=== PATIENT | female | born 1980 | race African-American/Black ===

== ENCOUNTER → 2024-06-24 09:08 | Outpatient (REF) | payer OTHER, SELFPAY | LOC: WDC 09:08 | PROVIDERS: ATTENDING PHYSICIAN Nurse Practitioner Family | DX: N63.20 Unspecified lump in the left breast, unspecified quadrant (principal); N64.4 Mastodynia | CPT/HCPCS: 76642; 77062; 77066 ==

== ENCOUNTER → 2024-07-12 09:56 | Outpatient (REF) | payer OTHER, SELFPAY | LOC: RAD 09:56 | PROVIDERS: ATTENDING PHYSICIAN Nurse Practitioner Family | DX: N93.9 Abnormal uterine and vaginal bleeding, unspecified (principal) | CPT/HCPCS: 76830; 76856 ==

== ENCOUNTER 2024-11-25 06:18 | Day surgery (SDC) | payer OTHER, SELFPAY ==
[2024-11-16 08:51] LABS: % Basophils 0.2 % (0-2); % Immature Granulocytes 0.3 % (0-0.5); % Lymphocytes 20.2 % (20.5-51.1); % Monocytes 6.2 % (1.7-9.3); % Neutrophils 72.1 % (42.2-75.2); Absolute Eosinophils 0.1 10^3/uL (0-0.7); Absolute Lymphocytes 1.8 10^3/uL (1.2-3.4); Absolute Monocytes 0.6 10^3/uL (0.1-0.6); Absolute Neutrophils 6.4 10^3/uL (1.4-6.5); Hematocrit 34.1 % (37.0-47.0); Hemoglobin 10.9 g/dL (12.0-16.0); Mean Corpuscular Hgb 24.2 pg (27.0-31.0); Mean Corpuscular Volume 75.6 fL (81.0-99.0); Mean Platelet Volume 9.8 fL (7.4-10.4); Nucleated Red Blood Cells % 0 %; Platelet Count 286 10^3/uL (130-400); Red Blood Cell Count 4.51 10^6/uL (4.20-5.40); Red Cell Dist. Width 13.7 % (11.5-14.5); White Blood Cell Count 8.8 10^3/uL (4.8-10.8)
[2024-11-16 09:23] LABS: Blood Urea Nitrogen 12 mg/dl (7-17); Calcium 9.2 mg/dl (8.4-10.2); Carbon Dioxide 24 mmol/L (22-30); Chloride 104 mmol/L (98-107); Glucose 95 mg/dl (70-99); Potassium 4.3 mmol/L (3.5-5.1); Sodium 139 mmol/L (135-145); eGFR > 60.00
[2024-11-16 09:41] LABS: Beta HCG Quantitative < 2.39 mIU/ml
[2024-11-16 13:35] VITALS: BMI 28.2
[2024-11-25] VITALS (9 sets, daily range): BP systolic 105–125; BP diastolic 77–85; BMI 28.2
--- NOTE | 2024-11-26 11:22 | W.IMMPOSTOP ---
Surgical Immed Post Op Note
-
Late entry Note. There is a written note on chart from day of surgery for postop note.
Primary Surgeon: Drea Arita DO
Assisting Surgeon: n/a
Pre-op Diagnosis: Abnormal uterine bleeding; endometrial mass, suspected polyp
Post-op Diagnosis: same; endometrial polyp
Procedure Performed: Hysteroscopy D&C, endometrial polypectomy
Anesthesia Type: general LMA Dr. Spencer
Specimen / Cultures: 1. endocervical curettings 2. endometrial curettings with endometrial polyp
Estimated Blood Loss: less than 2 ml
Complications: none
Operative Findings: Uterus with small endometrial polyp. Bilateral tubal ostia seen.
Counts correct times 2.
Stable to recovery.
== END 2024-11-25 11:46 | disposition home or self-care (01) ==
LOC: SDS 06:18
PROVIDERS: ATTENDING PHYSICIAN Obstetrics & Gynecology
DX: N84.0 Polyp of corpus uteri (principal); N93.9 Abnormal uterine and vaginal bleeding, unspecified
CPT/HCPCS: 58558; 88305; 36415; 80048; 84702; 85025; 86850; 86900; 86901

== ENCOUNTER 2025-02-28 02:34 | Inpatient (IN) | payer OTHER, SELFPAY ==
[2025-02-27 16:09] VITALS: BP 130/88
[2025-02-27 16:46] LABS: % Basophils 0.3 % (0-2); % Eosinophils 0.2 % (0-6); % Immature Granulocytes 0.5 % (0-0.5); % Lymphocytes 8.7 % (20.5-51.1); % Monocytes 5.3 % (1.7-9.3); Absolute Basophils 0.1 10^3/uL (0-0.2); Absolute Immature Granulocytes 0.1 10^3/uL (0-0.05); Absolute Lymphocytes 1.5 10^3/uL (1.2-3.4); Absolute Monocytes 0.9 10^3/uL (0.1-0.6); Absolute Neutrophils 14.7 10^3/uL (1.4-6.5); Hematocrit 36.4 % (37.0-47.0); Mean Corpuscular Hgb 24.5 pg (27.0-31.0); Mean Corpuscular Volume 74.3 fL (81.0-99.0); Mean Platelet Volume 10.7 fL (7.4-10.4); Nucleated Red Blood Cells % 0 %; Platelet Count 285 10^3/uL (130-400); Red Cell Dist. Width 13.7 % (11.5-14.5); White Blood Cell Count 17.3 10^3/uL (4.8-10.8)
[2025-02-27 16:46] LABS: Urine Albumin Negative (Neg - Trace); Urine Bilirubin Negative (Negative); Urine Character Clear (Clear); Urine Color Yellow; Urine Glucose Negative (Negative); Urine Ketone Negative (Negative); Urine Leukocyte 1+ (Negative); Urine Nitrite Negative (Negative); Urine Occult Blood 2+ (Negative); Urine Urobilinogen Negative (Neg - 1+)
[2025-02-27 16:56] LABS: HCG, Serum Qualitative Screen Negative
[2025-02-27 16:57] LABS: ALT (SGPT) 19 U/L (0-35); AST (SGOT) 21 U/L (14-36); Albumin 4.6 g/dl (3.5-5.0); Alkaline Phosphatase 53 U/L (38-126); Blood Urea Nitrogen 13 mg/dl (7-17); Carbon Dioxide 22 mmol/L (22-30); Chloride 107 mmol/L (98-107); Glucose 99 mg/dl (70-99); Lipase 48 U/L (23-300); Potassium 4.3 mmol/L (3.5-5.1); Sodium 138 mmol/L (135-145); Total Bilirubin 0.8 mg/dl (0.2-1.3); Total Protein 8.2 g/dl (6.3-8.2); eGFR > 60.00
[2025-02-27 17:08] LABS: Urine Bacteria Moderate (Negative)
--- NOTE | 2025-02-27 22:29 | ED.GENMED ---
History of Present Illness
General
Chief Complaint: Abdominal Pain
Source: patient
Exam Limitations: none
Time Seen by Provider: 02/27/25 22:17
Nursing documentation reviewed up to this point in time: agreed with
History of Present Illness
History of Present Illness:
44-year-old female presents emergency department due to right lower quadrant abdominal pain that began around 11:30 AM. She was seen in urgent care, and sent to the emergency department. She had breakfast, but has not eaten anything since. No
fevers.
Past History
Past History
ED Past Medical History: Other (Back pain, herniated disc, palpitations, anemia, beta thalassemia)
ED Past Surgical History: and Gynecological (Uterine polyp removal 11/25/[address] Arita)
Social History
Tobacco: Non-smoker
Alcohol: None
Drug: None
Personal:
Living: with family
Employment: Employed
Review of Systems
Review of Systems
Allergies reviewed?: Yes
All Other Systems: Not applicable
Constitutional: Reports no symptoms
EENT: Reports no symptoms
Respiratory: Reports no symptoms
Cardiac: Reports no symptoms
ABD/GI: Reports abdominal pain; Denies vomiting or diarrhea
: Reports no symptoms
Musculoskeletal: Reports no symptoms
Skin: Reports no symptoms
Neurological: Reports no symptoms
Endocrine: Reports no symptoms
Hematologic/Lymphatic: Reports no symptoms
Psychiatric: Reports no symptoms
Phy Exam
Physical Exam
Physical Exam:
Physical Exam
General: Afebrile
Neck: supple. no meningeal signs. normal posterior pharynx
Heart: s1/s2 regular rate and rhythm, no murmur. equal radial
pulses.
HEENT: Pupils equal round reactive to light, EOMI
Lungs: no acute respiratory distress. clear bilaterally
Abdomen: normal bowel sounds. Right lower quadrant tenderness. no CVAT
Neuro: alert and oriented. no focal neurological deficits cranial nerves II through XII intact
Skin: no rash
Psychiatric: well kept. interactive and cooperative
Extremities: no edema. no calf tenderness. negative homans. good distal pulses
Course
Orders/Labs/Results
Orders:
Orders
02/27/25 16:13
Test Result ONCE
02/27/25 16:21
Urinalysis Reflex To Culture Urgent
Date Specimen was Collected: 02/27/25
Time Specimen was Collected: 16:14
Urine Microscopic Reflex Cult Urgent
Urine Culture Urgent
DANIELA Source: U
Specimen Description:
Date Specimen was Collected: 02/27/25
Time Specimen was Collected: 16:14
02/27/25 16:25
Complete Blood Count/With Diff Urgent
02/27/25 16:27
Comprehensive Metabolic Panel Urgent
HCG, Serum Qualitative Screen Urgent
Lipase Urgent
02/27/25 22:28
IV Insert/Care/Rem.- Treatment PRN
Vital Signs- Treatment ONCE
Frequency: Hourly
Comment: weight and bmi
Acetaminophen [Tylenol] 650 mg PO NOW STA
02/28/25 00:02
CT Abd/pelvis W Iv Cont Urgent
Reason For Exam: RLQ abd pain
02/28/25 00:43
Piperacillin/Tazo 4.5 Gram [Zosyn] 4.5 gram in 100 ml IV NOW
02/28/25 01:39
Lactated Ringers [Lr] 1,000 ml IV BOLUS
02/28/25 02:11
Admit/Transfer Patient As Directed
Co-Sign Provider:
Level of Care: Inpatient admission
Assign to:: Medical/Surgical
Physician / Group: Haseeb motta
Diagnosis: Acyute appendicitis
Reason for Hospitalization: Possible OR, IV antibiotics
Expected length of stay greater than two midnights?: Yes
ELOS- Estimated Length of Stay in days: 1
I certify the patient meets the requirements for IP care: Yes
PRN Pain Medication Management As Directed
May give lesser potent ordered pain med per pt: Yes
preference::
Protocol:: Medication orders for pain may be administered in a
manner that supports deferring to patient preference
when the pt is:
- Requesting an ordered lesser potent pain medication.
Least to most potent pain medications are defined
as: acetaminophen < NSAID < tramadol < opioids
(morphine, oxycodone, hydromorphone).
- Requesting a lesser dose of the same medication IF
ORDERED.
- Requesting a less intrusive route of administration
if both routes are prescribed by the provider (PO <
IV).
02/28/25 02:12
Code Status As Directed
Resuscitation Status: Full Code
02/28/25 03:00
Flush (0.9% Sodium Chloride) [Flush (Nss)] See Dose Instructions IV PER PROTOCOL
Lactated Ringers [Lr] 1,000 ml IV 150 mls/hr
Abnormal Lab Results
02/27/25 02/27/25
16:21 16:25
WBC 17.3 H 10^3/uL
(4.8-10.8)
Hct 36.4 L %
(37.0-47.0)
MCV 74.3 L fL
(81.0-99.0)
MCH 24.5 L pg
(27.0-31.0)
MPV 10.7 H fL
(7.4-10.4)
Abs Immat Gran (auto) 0.1 H 10^3/uL
(0-0.05)
Absolute Neuts (auto) 14.7 H 10^3/uL
(1.4-6.5)
Absolute Monos (auto) 0.9 H 10^3/uL
(0.1-0.6)
Neutrophils % 85.0 H %
(42.2-75.2)
Lymphocytes % 8.7 L %
(20.5-51.1)
Ur Occult Blood Reflex 2+ A
(Negative)
Leukocyte Esterase Rfl 1+ A
(Negative)
Urine RBC 3-6 A /HPF
(0-2)
Urine Bacteria (Reflex) Moderate A
(Negative)
02/27/25 16:25
02/27/25 16:27
Vital Signs
Initial and Last Documented VS:
Initial Vital Signs
Temp Pulse Resp BP Pulse Ox
98.5 F 75 16 130/88 100
02/27/25 16:09 02/27/25 16:09 02/27/25 16:09 02/27/25 16:09 02/27/25 16:09
Last Documented Vital Signs
Temp Pulse Resp BP Pulse Ox
98.5 F 76 12 112/75 97
02/27/25 16:09 02/28/25 01:46 02/28/25 01:46 02/28/25 01:23 02/28/25 01:46
MDM/Problems Addressed
Differential Diagnosis Includes:
ovarian cyst, appendicitis
MDM/Problems Addressed:
44-year-old female with appendicitis, no perforation or rupture. Admit to general surgery, Dr. Motta. Arianna given.
*Radiology
Radiology exam reviewed: radiology read reviewed (CT abdomen pelvis shows acute appendicitis)
*Pulse Oximetry
Patient hypoxic: no
*Food Service Agent Interpretation
Rate: Food Service Agent- N/A
*Critical Care Note
Total Time (30-74mins, 75-104mins- exclusive of procedures): Not Applicable
Patient Management
Social determinants of health affecting care: Living situation and Strong social support
Discussion with other providers: Certifier (General surgery)
Escalation/DeEscalation of care consider admission/obs:
Admit indicated
ED Attending Note
-
Portions of this chart may have been created with voice recognition software.� Occasional wrong word or��sound alike� substitutions may have occurred due to the inherent limitations of voice recognition software.
Discharge Plan
Departure
Patient Disposition: Admit
Date of Disposition: 02/28/25
Time of Disposition: 00:45
Admit to: Med/Surg
Presentation/result/management discussed w/ accepting MD/DO: Gen surgery Dr. Motta
Patient with high blood pressure during this ER visit?: No
Condition: Good
Discharge Problem:
Acute appendicitis
Interventions
Interventions:
*Risk Screen - Suicide Last Done: 02/27/25 16:09
*General Assessment Last Done: 02/27/25 16:09
*Neglect/Abuse Screening Last Done: 02/27/25 16:09
*ED- Fall Risk Assessment Last Done: 02/27/25 23:23
*ED COVID-19 Vaccine History Last Done: 02/27/25 23:23
VZ-Shymfs-Tbefdlzqfk Assessment Last Done: 02/27/25 23:23
[2025-02-27] MEDS: TYLENOL 650 MG PO (23:13)
[2025-02-27 23:19] VITALS: BP 117/81
[2025-02-27 23:22] VITALS: BMI 28.9
[2025-02-28] VITALS: BP 117/72
[2025-02-28] MEDS: ZOSYN 100 IV (01:18)
[2025-02-28 01:23] VITALS: BP 112/75
[2025-02-28] MEDS: LR 1000 IV ×4 (01:54→20:33)
--- NOTE | 2025-02-28 02:20 | HPS.HSE ---
Family Physician
-
Family Physician: * NONE
Chief Complaint
-
'abdomen pain'
History of Present Illness
44 year old patient presents to ER with the complaint of diffuse abdomen pain started at 11:30 AM on Thursday. She describes pain as 'sharp' and that pain got sharper throughout the day. Reports nausea, but no vomiting or diarrhea. Denies fever,
chills, chest pain or shortness of breath. Last BM 02/27
Medical History
Past Medical History
Past Medical History: Reports None
Additional Past Medical History:
Anemia, Beta Thalassemia, palpitations
Past Surgical History: Reports (x2)
Social History
Tobacco: Non-smoker
Alcohol: None
Drug: None
Personal:
Living: With Family
Family History
Family History: Not pertinent
Allergies / Home Medications
Allergies reflects when Allergies were last updated in [email or web address].
Home Medications with original date entered in [email or web address]
Allergy/Medication List:
Allergies
Allergy/AdvReac Type Severity Reaction Status Date / Time
ketorolac [From Toradol] Allergy Itching Verified 02/27/25 16:12
Home Medications
No Meds [No Current Medications] 11/25/24
Review of Systems
-
History Source: Patient
A 12 point ROS was completed and negative except as noted: Yes
Constitutional: Reports No Symptoms
EENT: Reports No Symptoms
Respiratory: Reports No Symptoms
Cardiac: Reports No Symptoms
Abdomen/GI: Reports Abdominal Pain
: Reports No Symptoms
Musculoskeletal: Reports No Symptoms
Skin: Reports No Symptoms
Neurological: Reports No Symptoms
Endocrine: Reports No Symptoms
Hematologic/Lymphatic: Reports No Symptoms
Psych: Reports No Symptoms
Physical Exam
Vital Signs
Vital Signs
Temp Pulse Resp BP Pulse Ox
98.5 F 76 12 112/75 97
02/27/25 16:09 02/28/25 01:46 02/28/25 01:46 02/28/25 01:23 02/28/25 01:46
Physical Exam
General: Well Developed, Well Nourished and No Apparent Distress
HEENT: NormoCephalic, Moist mucous membranes and Atraumatic
Respiratory: Clear and Non Labored Respirations
Cardiac: S1/S2 and Regular Rhythm
GI: Soft, Non Distended, Normal Bowel Sounds and Tender (mid abdomen)
Rectal: Deferred by Provider
Genito-urinary: No costovertebral tender
Musculoskeletal: No Clubbing, No Cyanosis and No Edema
Skin: Warm and Dry
Neuro: Awake, AO x 3 and Nonfocal/grossly intact
Hematologic/Lymphatic: No Lymphadenopathy
Psych: Calm
Laboratory Results
-
02/27/25 16:25
02/27/25 16:27
Laboratory Results
Total Bilirubin 0.8 mg/dl (0.2-1.3) 02/27/25 16:27
AST 21 U/L (14-36) 02/27/25 16:27
ALT 19 U/L (0-35) 02/27/25 16:27
Alkaline Phosphatase 53 U/L (38-126) 02/27/25 16:27
Lipase 48 U/L (23-300) 02/27/25 16:27
Data Reviewed
-
CT Scan: Report Reviewed by me
Lab Data: Labs Reviewed by me
Impression/Plan
-
44 y/o patient with the c/o abdomen pain
# Abdomen pain likely due to Acute Appendicitis
- WBC 17
- CT abd/pelvis
Enlarged appendix measuring up to 10mm, with wall thickening and surrounding stranding, compatible with acute appendicitis
-Continue IV Zosyn
- Continue LR
- IV Dilaudid
- NPO
-Admit to Dr. Motta Med Surg
Full Code
SCD's
[2025-02-28 08:00] VITALS: BP 105/46
[2025-02-28] MEDS: ZOSYN 50 IV ×3 (08:18→20:34)
--- NOTE | 2025-02-28 10:00 | CON.GS ---
Addendum entered and electronically signed by Haseeb Motta MD 02/28/25 12:02:
Patient and opt for medical management. Risks and benefits discussed. Plan to admit on IV Zosyn. Repeat labs ordered for tomorrow. Dispo and decision on surgical management pending WBC trend and symptoms.
Original Note:
Consultation
-
Date/Time Consultation Requested: 02/27/2025 1245
Date/Time Consultation Performed: 02/28/2025 0900
Medical History
-
Chief Complaint: Abdominal pain
History of Present Illness:
Patient is a 44 yo F with a PMH of abnormal uterine bleeding, thickened endometrium, and fibroids s/p hysteroscopy D&C and endometrial polypectomy by Dr. Arita on 11/26/2024 and s/p x2 who presents with abdominal pain over the past 24
hours. Symptoms began yesterday morning somewhat acutely. She describes crampy abdominal discomfort which is worse with movement and certain positions. Pain localizes to the RIGHT lower abdomen as sharp pains. No nausea or emesis. No fevers or
chills. No diarrhea or bloody stools. She initially attributed her symptoms to food poisoning or a gastroenteritis, however, her symptoms persisted prompting presentation to a local urgent care and then ultimately to ER. No family history of
IBD or colon cancer. No prior colonoscopy.
Past Medical History
Past Medical History: Other (Abnormal uterine bleeding, beta thalassemia)
Past Surgical History: and Gynecological (Hysteroscopy with biopsy on 11/26/2024)
Social History
Tobacco: Non-Smoker
Alcohol: None
Drug: None
Personal:
Living: With Family
Family History
Family History: Reviewed & Noncontributory
Allergies / Home Medications
Allergy/AdvReac Type Severity Reaction Status Date / Time
ketorolac [From Toradol] Allergy Itching Verified 02/27/25 16:12
�Medication �Instructions �Recorded �Confirmed �Type
No Meds [No Current Medications] 11/25/24 02/28/25 History
Review of Systems
-
A 10 point review of systems was completed, and was negative except as per HPI.
Physical Exam
Vital Signs
Temp Pulse Resp BP Pulse Ox
98.4 F 76 12 112/75 97
02/28/25 08:00 02/28/25 01:46 02/28/25 01:46 02/28/25 01:23 02/28/25 01:46
02/27/25 02/28/25 03/01/25
06:59 06:59 06:59
Actual Weight 72.7 kg
Body Mass Index (BMI) 28.9
Lab Results
02/27/25 16:25
02/27/25 16:27
WBC 17.3 10^3/uL (4.8-10.8) H 02/27/25 16:25
Hgb 12.0 g/dL (12.0-16.0) 02/27/25 16:25
Hct 36.4 % (37.0-47.0) L 02/27/25 16:25
Plt Count 285 10^3/uL (130-400) 02/27/25 16:25
Abs Immat Gran (auto) 0.1 10^3/uL (0-0.05) H 02/27/25 16:25
Neutrophils % 85.0 % (42.2-75.2) H 02/27/25 16:25
Physical Exam
General: Well Developed, Well Nourished and No Apparent Distress
HEENT: Normocephalic and Anicteric
Respiratory: Non Labored Respirations
Cardiac: Regular Rhythm
GI: Soft, Non Distended, Tender (RLQ) and Other (No diffuse peritonitis, palpable umbilical hernia, soft, reducible, fascial defect 1 cm)
Musculoskeletal: No Edema
Skin: Warm and Dry
Neuro: Nonfocal/Grossly Intact
Data Reviewed
-
CT Scan: Image Personally Visualized and interpreted and Report Reviewed by me
Labs: Labs Reviewed by me
Assessment / Plan
-
Patient is a 44 yo F p/w RUQ abdominal pain and acute appendicitis
Differential includes FIELD INSTALLATION TECHNICIAN pathology given her CT scan findings and prior history, however, her pain is localized to the RLQ in the region of her appendix and her symptoms are different from that previously. She also has a positive UA with a culture
pending, however, this could very well be reactive from her ongoing acute process. The natural history and pathophysiology of appendicitis was reviewed. CT scan imaging as a relates to both her FIELD INSTALLATION TECHNICIAN pathology and appendix was reviewed. Options for
management including medical management with antibiotics versus surgical management with appendectomy were considered and discussed. The pros and cons of this was discussed. Specifically, we discussed failure of medical management and future
episodes of appendicitis versus surgical risks and recovery.
Tentative plan for a laparoscopic appendectomy with open primary umbilical hernia repair. The procedure itself, as well as the risks, benefits, and alternatives was discussed. Specifically, we discussed the risks of bleeding, infection, injury to
surrounding structures (bowel, bladder), staple line leak, need for open procedure. We also discussed that with a coordinated primary umbilical hernia repair she is at risk for recurrence and will need to extend out her activity limitations for 4
weeks postoperatively.
Patient to review her treatment options before making a final decision. All questions answered.
-- Tentative plan for a laparoscopic appendectomy with open primary umbilical hernia repair
-- NPO, IVF
-- Abz: Zosyn
--- NOTE | 2025-02-28 11:39 | CM ---
CM met with pt and spouse bedside
They resides with their children (8 and 13) in a 2[address] with 3STE
Pt is indep with her ADLs
Works FT at [employer] schedule
PCP- none (recently retired and trouble getting timely new pt appt)
Resident clinic info provided
Rx- [facility]
Discharge Disposition- home, no needs anticipated
[2025-02-28] MEDS: MOTRIN 600 MG PO ×2 (13:33→21:51)
[2025-02-28 16:49] VITALS: BP 99/61
[2025-02-28 17:20] VITALS: BP 110/70
--- NOTE | 2025-02-28 17:30 | PTCARENOTE ---
Patient admitted into room 2112 from ED. Patient AAOx3, VSS, LR infusing at 75 ml/hr in R FA IV, patient ambulatory in room with standby assist/IV pole. Patient states R lower abd discomfort rated 3-4/10, denies need for pain medication at this
time. Clear liquid diet order entered. JOANN stockings and SCDs in room, patient refusing at this time. Patient and spouse at bedside updated on plan of care, patient oriented to room and call monica durant appropriately.
[2025-02-28 23:25] VITALS: BP 116/76
[2025-02-28] MEDS: DILAUDID 0.25 MG IV (23:59)
[2025-03-01] MEDS: ZOSYN 50 IV ×2 (02:03→08:46)
[2025-03-01 07:23] LABS: % Basophils 0.3 % (0-2); % Immature Granulocytes 0.4 % (0-0.5); % Lymphocytes 15.1 % (20.5-51.1); % Monocytes 8.1 % (1.7-9.3); % Neutrophils 75.1 % (42.2-75.2); Absolute Eosinophils 0.1 10^3/uL (0-0.7); Absolute Lymphocytes 1.7 10^3/uL (1.2-3.4); Absolute Monocytes 0.9 10^3/uL (0.1-0.6); Absolute Neutrophils 8.5 10^3/uL (1.4-6.5); Hematocrit 30.2 % (37.0-47.0); Mean Corp Hgb Conc. 33.1 g/dL (33.0-37.0); Mean Corpuscular Hgb 24.4 pg (27.0-31.0); Mean Corpuscular Volume 73.8 fL (81.0-99.0); Mean Platelet Volume 11.5 fL (7.4-10.4); Nucleated Red Blood Cells % 0 %; Platelet Count 262 10^3/uL (130-400); Red Blood Cell Count 4.09 10^6/uL (4.20-5.40); Red Cell Dist. Width 13.3 % (11.5-14.5); White Blood Cell Count 11.3 10^3/uL (4.8-10.8)
[2025-03-01 07:55] VITALS: BP 102/63
--- NOTE | 2025-03-01 10:48 | CM ---
Addendum entered by Henna Sanchez 03/01/25 13:54:
Patient for discharge home today, no needs.
Original Note:
Patient seen at bedside in [address] [place] [address]. Patient stated that she has an appointment at the residency clinic on 03/17/25. Patient anticipated further testing today, pending outcome patient would like to avoid surgery but is open to physician
recommendations. CM will continue to follow for discharge planning needs.
Plan; home with no needs vs VN
--- NOTE | 2025-03-01 11:31 | W.PN.GS2 ---
Addendum entered and electronically signed by Haseeb Motta MD 03/02/25 08:04:
UTI confirmed with urine culture growing Citrobacter. Susceptible to Augmentin. Coverage with antibiotic therapy for appendicitis.
Original Note:
Today's Communication / Plan
-
-- DC today
-- Augmentin 7 days
Assessment / Plan
-
Patient is a 44 yo F p/w acute appendicitis
AVSS
Labs notable for downtrending WBC
Clinical and laboratory improvement with antibiotic treatment. Plan for discharge on 7-day course of Augmentin. Outpatient follow-up to discuss interval appendectomy.
-- Regular diet
-- Pain control: Tylenol, Ibuprofen
-- HLIV
-- Abx: Zosyn --> Augmentin for 7 days
-- Outpatient follow-up
-- DC today
Subjective Data
-
Date of Service: March 01, 2025
Feels improved, less pain and bloating. No nausea or vomiting. Passing flatus. Tolerated regular diet. Afebrile.
Objective Data
-
Intake and Output
02/28/25 03/01/25 03/02/25
06:59 06:59 06:59
Intake Total 50 / 50
Balance 50 / 50
Intake:
IV piggybacks 50 / 50
Vital Signs
Temp Pulse Resp BP Pulse Ox
98.4 F 70 16 102/63 98
03/01/25 07:55 03/01/25 07:55 03/01/25 07:55 03/01/25 07:55 03/01/25 08:00
Lab Results
03/01/25 06:08
02/27/25 16:27
Calcium 10.0 mg/dl (8.4-10.2) 02/27/25 16:27
Total Bilirubin 0.8 mg/dl (0.2-1.3) 02/27/25 16:27
AST 21 U/L (14-36) 02/27/25 16:27
ALT 19 U/L (0-35) 02/27/25 16:27
Alkaline Phosphatase 53 U/L (38-126) 02/27/25 16:27
Total Protein 8.2 g/dl (6.3-8.2) 02/27/25 16:27
Albumin 4.6 g/dl (3.5-5.0) 02/27/25 16:27
Physical Exam
-
Gen: NAD
Abd: soft, minimal tenderness in RLQ, ND, non-peritoneal (overall improved)
Patient has a jiang catheter: No
Patient has a central line: No
[2025-03-01 11:45] VITALS: BP 110/68
--- NOTE | 2025-03-01 14:33 | PN.CDI ---
CDI
- -
CDI:
Physician Documentation Request
Admit Date: 02/28/25 02:34
Dear Doctor Ángela,
Surgery consult states 'She also has a positive UA with a culture pending, however, this could very well be reactive from her ongoing acute process.'
Culture positive for Citrobacter koseri.
Please clarify the following:
____ - UTI was/is present
____ - UTI was ruled out
____ - Other
Use of terms such as suspected, likely, concern for, or probable (associated with a specific diagnosis that is being evaluated, monitored, or treated as if it exists) are acceptable and can be coded in the inpatient setting, when documented at the
time of discharge.
Thank you,
Marla Chávez RN, BSN
CDI Specialist
tiger text
Please use your independent medical judgment in providing your response.
== END 2025-03-01 14:10 | disposition home or self-care (01) | DRG 394 ==
LOC: 2 SOUTH 02:34
PROVIDERS: Emergency Medicine; ADMITTING PHYSICIAN Surgery; EMERGENCY PHYSICIAN Emergency Medicine
DX: K35.80 Unspecified acute appendicitis (principal); N39.0 Urinary tract infection, site not specified; D56.1 Beta thalassemia
CPT/HCPCS: 74177; 80053; 81003; 81015; 83690; 84703; 85025; 87077; 87086; 87186; Q9967

== ENCOUNTER 2025-05-17 06:05 | Day surgery (SDC) | payer OTHER, SELFPAY ==
[2025-05-12 14:06] VITALS: BMI 25.3
[2025-05-17] VITALS (10 sets, daily range): BP systolic 107–118; BP diastolic 66–81; BMI 25.3
[2025-05-17] MEDS: NEURONTIN 300 MG PO (06:42)
[2025-05-17] MEDS: TYLENOL 1000 MG PO (06:43)
[2025-05-17] MEDS: NORMOSOL-R/PLASMALYTE-A 1000 IV (06:43)
[2025-05-17] MEDS: SUBLIMAZE 25 MCG IV (09:45)
[2025-05-17] MEDS: ZOFRAN 4 MG IV (10:46)
[2025-05-17] MEDS: MOTRIN 600 MG PO (11:39)
== END 2025-05-17 12:45 | disposition home or self-care (01) ==
LOC: SDS 06:05
PROVIDERS: ATTENDING PHYSICIAN Surgery
DX: K35.80 Unspecified acute appendicitis (principal); K42.9 Umbilical hernia without obstruction or gangrene; N93.8 Other specified abnormal uterine and vaginal bleeding; K66.0 Peritoneal adhesions (postprocedural) (postinfection); N94.6 Dysmenorrhea, unspecified; N83.8 Other noninflammatory disorders of ovary, fallopian tube and broad ligament; Z30.2 Encounter for sterilization
CPT/HCPCS: 44979; 58661; 36415; 80048; 84702; 85025; 86850; 86900; 86901; 88302; 88304